=== PATIENT | female | born 1990 | race Caucasian/White ===

== ENCOUNTER 2016-07-17 08:17 | Emergency (ER) | payer MEDICAID ==
[2016-07-17 08:22] VITALS: PULSE 86; TEMP 97.4; BMI 29.5
[2016-07-17] MEDS ORDERED: AZITHROMYCIN 250 MG TAB PO ONE (08:29)
[2016-07-17] MEDS ORDERED: OXYMETAZOLINE 0.05% NASAL SPRAY NAS ONE (08:29)
[2016-07-17] MEDS ORDERED: IBUPROFEN 600 MG TAB PO ONE (08:29)
[2016-07-17] MEDS ORDERED: ALBUTEROL 6.7 GM MDI INH ONE (08:29)
--- NOTE | 2016-07-17 08:40 | EDPRACDOC ---
- General Information Chief Complaint: Earache Stated Complaint: EARACHE Time Seen by Provider: 07/17/16 08:25 Information Source: Patient Mode of Arrival: Car Home Medications: Home Medications Azithromycin [Zithromax] 250 mg PO DAILY #4 tab 07/17/16 Hydrocodone/Acetaminophen [Lortab 5-325 mg Tablet] 1 each PO Q4H PRN #15 tablet 07/17/16 Ibuprofen 600 mg PO Q6H PRN #20 tablet 07/17/16 Allergies/Adverse Reactions: Allergies Allergy/AdvReac Type Severity Reaction Status Date / Time diphenhydramine HCl Allergy Unknown Hives* Verified 07/17/16 08:22 [From Carmen] - History of Present Illness Onset: THU HPI: PT HAS HAD RIGHT EAR PAIN SINCE THURSDAY THE . PT SAID THAT SHE'S HAD A LOW GRADE FEVER AND A COUGH. THE PAIN IS NOW IN BOTH EARS. Location: bilateral ear Context: Reports: Spontaneous Onset Recently Treated Ear Infection: Reports: No Pain Severity: Reports: Moderate Associated Signs & Symptoms: Reports: Fever, Runny Nose ED Past Medical History - History Reviewed No Past Medical History: Yes Patient has no past medical history - Patient Medical History Psychological History: Denies: Depression Surgical History: Reports: Other () - Social Medical History Smoking Status: Former smoker ETOH: None Substance Abuse: None Lives In: Home EDM Review of Systems - Review of Systems ROS Negative Except as Marked: Yes All systems reviewed and were negative except as marked Ears: Pain Nose: Congestion - Physical Exam Constitutional: Alert (Awake), No apparent distress Oriented to: Time, Person, Place Last recorded Vital Signs: Last Vital Signs Temp 97.4 F L 07/17/16 08:19 Pulse 86 07/17/16 08:19 Resp 18 07/17/16 08:19 BP 155/105 H 07/17/16 08:19 Pulse Ox 94 07/17/16 08:19 Oxygen Pulse Oxygen Saturation 94 O2 Device Oxygen Flow Rate Fraction of Inspired Oxygen ( FIO2) - HEENT Head: Normal ( normocephalic) Eye Exam: Normal (PERRL, EOMI, Sclera white) Oropharynx: Normal (Pharynx:Moist without exudate,Gums-no swelling) Tympanic Membrane: Bulging, Redness ENT EAC: Normal TMJ: Normal Nose: No Symptoms Reported (septum midline) Neck: Normal (FROM, trachea at midline) - Respiratory/Cardiovascular Respiratory: Wheezes Cardiovascular: Normal (RRR without murmur, gallop or rub) - GI Auscultation: Normal (NABS) Palpation: Normal (Soft,No rebound or guarding, non distended) Tenderness: Non tender Bee's Sign: Negative - Musculoskeletal Back: Normal (Non-Tender) Extremities: Normal (Normal tone, Pulses 2+ No cyanosis or edema, FROM) - Integumentary Skin: Normal, Warm, Dry Lymphatics: Normal (no adenopathy) - Neurologic Memory Impaired: Normal Motor Function: Normal (Normal tone, Pulses 2+ No cyanosis or edema, FROM) Cranial Nerve: Normal (CN II-X11 intact sensation, strength 5/5) Cerebellar: Normal Mood Description: Normal Perception: Normal Decision Time to Discharge: 08:41 - Departure Yes I personally saw and evaluated the patient. Disposition: Home Condition: Fair Final Diagnosis: Bilateral otitis media, Acute bronchitis Instructions: Otitis Media (ED) Education/Counseling Given To: Patient Education/Counseling Given Regarding: Diagnosis, Treatment, Follow Up Referrals: Zhang Vela MD [Primary Care Provider] - One Week Prescriptions: Azithromycin [Zithromax] 250 mg PO DAILY #4 tab Hydrocodone/Acetaminophen [Lortab 5-325 mg Tablet] 1 each PO Q4H PRN #15 tablet PRN Reason: Pain Ibuprofen 600 mg PO Q6H PRN #20 tablet PRN Reason: Pain
[2016-07-17 09:02] VITALS: BP 145/110
== END 2016-07-17 08:59 | disposition home or self-care (01) ==
LOC: ED 08:17
DX: H66.93 Otitis media, unspecified, bilateral (principal); J20.9 Acute bronchitis, unspecified
CPT/HCPCS: 94640; 94664; 99282; J3490